=== PATIENT | female | born 1970 | race Caucasian/White ===

== ENCOUNTER 2017-08-07 10:37 | Observation (INO) ==
[2017-08-07] MEDS ORDERED: Ipratropium/Albuterol Neb 3 ML IH ONE (10:49)
--- NOTE | 2017-08-07 11:17 | Emergency Department Note ---
Disposition Clinical Impression: Community acquired pneumonia Disposition: Admitted As Inpatient Condition: Fair Time of Disposition: 11:31 ([facility]) SOB HPI - General Chief Complaint: ED Shortness of Breath/Dyspnea Stated Complaint: COUGH, SHORT OF BREATH Time Seen by Provider: 08/07/17 10:42 Source: patient Mode of arrival: ambulatory Limitations: no limitations Nursing Notes Reviewed: Yes Vital Signs Reviewed: Yes - History of Present Illness Almost 2 week history of flulike symptoms fever chills cough congestion runny nose sore throat phlegm production increasing dyspnea and a morbid obese female who presents to emergency room with symptoms worsening nausea no vomiting no diarrhea patient unable to get around the house secondary to shortness of breath cough and congestion denies diarrhea melena hematochezia or hematemesis pain swelling edema patient states that she is 450+ pounds Pt Subjective Complaint: shortness of breath, cough Onset (ago): week(s) (2) Severity: moderate Consistency/Duration: constant, gradually worsening Improves with: nothing Worsens with: lying flat, exertion, coughing, inspiration Known history of: COPD Associated symptoms: Reports: fever, cough, wheezing, sputum production. Denies : chest pain, pain with inspiration, orthopnea, lower extremity pain, polyuria, polydipsia, parasthesias, palpitations, hemoptysis, diaphoresis, nausea/vomiting , syncope, abdominal pain, rash, sense of impending doom Treatment prior to arrival: bronchodilator Cough present: Yes Cough Description: Involuntary, Productive, Strong Cough Frequency: Intermittent Sputum production: Yes Sputum Amount: Small Sputum Color: Yellow, Green - Related Data Home Medications Medication Instructions Recorded Confirmed Gabapentin [Neurontin] 300 mg PO TID 03/23/16 06/07/17 Atorvastatin [Lipitor] 10 mg PO HS 06/07/17 06/07/17 Docusate [Colace] 100 mg PO DAILY 06/07/17 06/07/17 Fluticasone Propionate Nasal 1 spray NS DAILY PRN 06/07/17 06/07/17 [Flonase] Loratadine [Allergy Relief] 10 mg PO DAILY 06/07/17 06/07/17 Previous Rx's Medication Instructions Recorded Hydrocodone/Acetaminophen [[place] 1 tab PO TID PRN #6 tab 03/23/16 5-325 Tablet] Allergies Allergy/AdvReac Type Severity Reaction Status Date / Time No Known Allergies Allergy Verified 11/30/16 10:22 All systems ED: reviewed and negative except as stated. Review of Systems: As Per HPI Constitutional: Reports: fever, chills. Denies: weakness Eyes: Denies: eye pain, eye discharge ENT ED: Reports: ear pain, throat pain, congestion Cardiovascular: Denies: chest pain, palpitations Respiratory: Reports: cough, dyspnea, wheezes, sputum production Gastrointestinal: Denies: abdominal pain, nausea, vomiting Genitourinary: Denies: urgency, dysuria Musculoskeletal: Denies: back pain, neck pain Integumentary: Denies: rash, abrasion Neurological: Denies: headache, weakness Psychiatric: Denies: anxiety Endocrine: Denies: fatigue Hematological/Lymphatic: Denies: easy bleeding Allergic/Immunologic: Denies: facial swelling Past Medical History - Past Medical History Attestation: Yes The following information was validated with the patient. Source: patient, old records reviewed, nursing notes reviewed Medical history: Reports: arthritis, hyperlipidemia, hypertension Psychiatric history: Reports: no psych history - Social History Smoking Status: Former smoker Smokeless Tobacco Status: Yes Alcohol use: Reports: occasionally Drug use: Reports: none Physical Exam - General Limitations: physical limitation (wgt) General appearance: alert, in no apparent distress, obese - Head Head exam: atraumatic, normocephalic, normal inspection - Eye Eye exam: Present: normal appearance, PERRL, EOMI - ENT ENT exam: normal exam, normal oropharynx, mucous membranes moist, normal external ear exam, other (Right tympanic membrane beefy red erythematous left opalescent nasal drip) - Neck Neck exam: Present: normal inspection, full ROM, trachea midline - Chest Chest inspection: Present: normal inspection, symmetric chest wall rise - Respiratory Respiratory exam: Present: wheezes, prolonged expiratory phase, other (rhonci) - Cardiovascular Cardiovascular exam: Present: tachycardia - Abdominal Exam Abdominal exam: Present: soft, Non-Tender, normal bowel sounds. Absent: mass, pulsatile mass - Extremities Exam Extremities exam: Present: normal inspection, full ROM, normal capillary refill. Absent: tenderness, pedal edema, joint swelling, calf tenderness - Expanded Lower Extremity Exam Neurovascular/Tendon exam: Present: normal capillary refill, normal fine/light touch Gait: observed and normal - Back Exam Back exam: Present: normal inspection, full ROM. Absent: muscle spasm - Neurological Exam Neurological exam: Present: alert, oriented X3, CN II-XII intact, normal gait - Psychiatric Psychiatric exam: Present: normal affect, normal mood - Skin Skin exam: Present: warm, dry, intact, normal color Course Course Narrative: Seen and examined chest x-ray obtained upon completion a chest x-ray showing a large left sided pneumonia blood work IV antibiotics were started workup for sepsis was also started in the event that she does meet criteria for this in addition with Dr. León has agreed for admission to his services for further evaluation and treatment Vital Signs Temperature 100.1 F H 08/07/17 10:39 Pulse Rate 118 08/07/17 10:39 Respiratory Rate 22 08/07/17 10:39 Blood Pressure 159/103 08/07/17 10:39 O2 Sat by Pulse Oximetry 96 08/07/17 10:39 Temperature 100.1 F H 08/07/17 10:39 Pulse Rate 108 08/07/17 11:47 Respiratory Rate 20 08/07/17 11:47 Blood Pressure 159/86 08/07/17 11:47 O2 Sat by Pulse Oximetry 94 08/07/17 11:47 Oxygen Delivery Oxygen Delivery Room Air Shortness of Breath/Dyspnea - MDM Narrative Medical decision making narrative: bronchitis flu - Differential Diagnosis Likely: pneumonia - Medical Records Medical records reviewed: Yes I reviewed the patient's medical records. - Lab Data Result diagrams: 08/07/17 11:35 08/07/17 11:35 Lab Results 08/07/17 08/07/17 08/07/17 Range/Units 11:35 11:35 11:35 WBC 23.3 H (4.3-11.1) K/mcL RBC 4.96 (3.82-4.97) M/mcL Hgb 12.4 (11.5-15.4) g/dL Hct 41.3 (35.3-44.9) % MCV 83.3 (83.0-100.0) fL MCH 25.0 L (28.0-33.3) pg MCHC 30.0 L (31.6-35.5) g/dL RDW 14.7 H (11.5-14.5) % Plt Count 207 (140-400) K/mcL MPV 10.4 (9.4-12.4) fL Seg Neutrophils % 84.0 % Band Neutrophils % 4.0 (0-4) % Lymphocytes % 6.0 % Monocytes % 6.0 % Neutrophils # 20.5 H (1.6-8.9) K/mcL Lymphocytes # 1.4 (0.6-4.6) K/mcL Monocytes # 1.4 H (0.0-1.3) K/mcL Platelet Estimate Normal (Normal) Hypochromasia Present A (Not Present) PT 13.9 H (9.4-12.1) Seconds INR 1.3 APTT 31.8 (26.0-36.0) Seconds Sodium 133 L (136-145) mEq/L Potassium 3.9 (3.5-4.5) mEq/L Chloride 99 (98-109) mEq/L Carbon Dioxide 19 (19-29) mEq/L BUN 12 (7-20) mg/dL Creatinine 0.91 (0.57-1.11) mg/dL Est GFR ( Amer) > 60 (> 60) Est GFR (Non-Af Amer) > 60 (> 60) BUN/Creatinine Ratio 13 (6-26) Glucose 140 H (70-99) mg/dL Calculated Osmolality 278 L (280-300) Lactic Acid (0.5-2.2) mmol/L Calcium 9.4 (8.6-10.8) mg/dL Total Bilirubin 1.5 H (0.2-1.2) mg/dL AST 11 (5-34) Units/L ALT 15 (0-55) Units/L Alkaline Phosphatase 78 (38-126) Units/L Serum Total Protein 7.9 (6.0-8.3) g/dL Albumin 3.0 L (3.5-5.0) g/dL Globulin 4.9 H (2.4-3.5) g/dL Albumin/Globulin Ratio 0.6 L (1.1-2.2) 08/07/17 Range/Units 11:35 WBC (4.3-11.1) K/mcL RBC (3.82-4.97) M/mcL Hgb (11.5-15.4) g/dL Hct (35.3-44.9) % MCV (83.0-100.0) fL MCH (28.0-33.3) pg MCHC (31.6-35.5) g/dL RDW (11.5-14.5) % Plt Count (140-400) K/mcL MPV (9.4-12.4) fL Seg Neutrophils % % Band Neutrophils % (0-4) % Lymphocytes % % Monocytes % % Neutrophils # (1.6-8.9) K/mcL Lymphocytes # (0.6-4.6) K/mcL Monocytes # (0.0-1.3) K/mcL Platelet Estimate (Normal) Hypochromasia (Not Present) PT (9.4-12.1) Seconds INR APTT (26.0-36.0) Seconds Sodium (136-145) mEq/L Potassium (3.5-4.5) mEq/L Chloride (98-109) mEq/L Carbon Dioxide (19-29) mEq/L BUN (7-20) mg/dL Creatinine (0.57-1.11) mg/dL Est GFR ( Amer) (> 60) Est GFR (Non-Af Amer) (> 60) BUN/Creatinine Ratio (6-26) Glucose (70-99) mg/dL Calculated Osmolality (280-300) Lactic Acid 3.6 H (0.5-2.2) mmol/L Calcium (8.6-10.8) mg/dL Total Bilirubin (0.2-1.2) mg/dL AST (5-34) Units/L ALT (0-55) Units/L Alkaline Phosphatase (38-126) Units/L Serum Total Protein (6.0-8.3) g/dL Albumin (3.5-5.0) g/dL Globulin (2.4-3.5) g/dL Albumin/Globulin Ratio (1.1-2.2) - Radiology Data Radiology results reviewed: Yes I reviewed the patient's radiology results. Critical Care Time Critical Care Time: Yes Total Critical Care Time: 35 Attestation: Critical care performed: 35 minutes as the result of the patient meeting criteria for sepsis based upon the fact that she is tachycardic elevated white count tachypnea Elevated lactic acid digit patient's morbid obesity though this is requiring more than 6 L of saline to be infused with her morbid obesity the concern is that this could throw her into congestive heart failure she has not been hypotensive and after her first liter fluid bolus patient is pink warm and dry lungs still have heavy crackles or rhonchi noted in up she has got strong peripheral pulses she has brisk refill and heart is sinus vitals showing improvement discussion with Dr. León for fear of causing secondary complications because of her morbid obesity we will hold on giving her the fluids because she her blood pressure has remained stable at this time if she becomes hypotensive or starts to have a decrease in blood pressure at that time we will start infusion of fluids at that time transferred to [facility]. Improved Time is exclusive of separately billable procedures. Time includes: direct patient care, patient reassessment, coordination of patient care, interpretation of data (laboratory data, radiology data, and respiratory data), review of patient's medical records, medical consultation and documentation of patient care. Procedures included in critical care time: Procedures excluded from critical care time:
[2017-08-07] MEDS ORDERED: 0.9 % Sodium Chloride 1,000 ML IVC ONE ×3 (11:19→12:37)
[2017-08-07] MEDS ORDERED: Azithromycin 500 MG in D5% in Water 250 ML IVPB ONE (11:19)
[2017-08-07 11:51] LABS: Hematocrit 41.3 % (35.3-44.9); Hemoglobin 12.4 g/dL (11.5-15.4); Mean Corpuscular Volume 83.3 fL (83.0-100.0); Mean Platelet Volume 10.4 fL (9.4-12.4); Platelet Count 207 K/mcL (140-400); Red Blood Count 4.96 M/mcL (3.82-4.97); Red Cell Distribution Width 14.7 % (11.5-14.5)
[2017-08-07 11:55] LABS: INR 1.3; Prothrombin Time 13.9 Seconds (9.4-12.1)
[2017-08-07 11:57] LABS: Activated Partial Thrombo Time 31.8 Seconds (26.0-36.0)
[2017-08-07 12:08] LABS: Alanine Aminotransferase 15 Units/L (0-55); Albumin/Globulin Ratio 0.6 (1.1-2.2); Alkaline Phosphatase 78 Units/L (38-126); Aspartate Amino Transferase 11 Units/L (5-34); BUN/Creatinine Ratio 13 (6-26); Bilirubin,Total 1.5 mg/dL (0.2-1.2); Blood Urea Nitrogen 12 mg/dL (7-20); Calcium 9.4 mg/dL (8.6-10.8); Carbon Dioxide 19 mEq/L (19-29); Chloride 99 mEq/L (98-109); Globulin 4.9 g/dL (2.4-3.5); Glucose 140 mg/dL (70-99); Osmolality,Calculated 278 (280-300); Potassium 3.9 mEq/L (3.5-4.5); Sodium 133 mEq/L (136-145); Total Protein 7.9 g/dL (6.0-8.3); eGFR For African Americans > 60 (> 60); eGFR For Non-African Americans > 60 (> 60)
[2017-08-07 12:30] LABS: Lymphocytes # 1.4 K/mcL (0.6-4.6); Monocytes # 1.4 K/mcL (0.0-1.3); Neutrophils # 20.5 K/mcL (1.6-8.9); Platelet Estimate Normal (Normal)
[2017-08-07 12:31] LABS: Hypochromasia Present (Not Present)
[2017-08-07] MEDS ORDERED: Fluticasone Propionate Nasal 50 MCG/SPRAY BOTTLE NS PRN ×2 (12:37→14:44)
[2017-08-07] MEDS ORDERED: 0.9 % Sodium Chloride 1,000 ML IVC SCH ×3 (12:37→14:44)
[2017-08-07] MEDS ORDERED: Ondansetron ODT 4 MG TAB.RAPDIS SL PRN ×2 (12:37→14:44)
[2017-08-07] MEDS ORDERED: Acetaminophen 325 MG TABLET PO PRN ×2 (12:37→14:44)
[2017-08-07] MEDS ORDERED: *HR* HYDROcodone/Acet 5/325 mg TABLET PO PRN (12:37)
[2017-08-07] MEDS ORDERED: Ibuprofen 400 MG TABLET PO PRN (12:37)
[2017-08-07] MEDS ORDERED: Naloxone 0.4 MG/ML INJ IVP PRN ×2 (12:37→14:44)
[2017-08-07] MEDS ORDERED: Ipratropium/Albuterol Neb 3 ML IH SCH ×2 (13:00→16:00)
[2017-08-07] MEDS: 0.9 % Sodium Chloride 1,000 ML IVC SCH ×2 (14:54→22:29)
[2017-08-07] MEDS ORDERED: Gabapentin 300 MG CAPSULE PO SCH (15:00)
[2017-08-07] MEDS: Gabapentin 300 MG CAPSULE PO SCH ×2 (15:08→19:59)
[2017-08-07] MEDS: Ibuprofen 400 MG TABLET PO PRN (15:37)
[2017-08-07] MEDS: Ipratropium/Albuterol Neb 3 ML IH SCH ×2 (16:36→22:51)
[2017-08-08] MEDS: Ipratropium/Albuterol Neb 3 ML IH SCH ×2 (04:43→10:56)
[2017-08-08 06:23] LABS: INR 1.4; Prothrombin Time 15.1 Seconds (9.4-12.1)
[2017-08-08 06:26] LABS: Activated Partial Thrombo Time 29.6 Seconds (26.0-36.0)
[2017-08-08] MEDS: Ibuprofen 400 MG TABLET PO PRN ×2 (06:41→20:44)
[2017-08-08] MEDS: *HR* HYDROcodone/Acet 5/325 mg TABLET PO PRN ×2 (06:41→20:27)
[2017-08-08 08:33] LABS: Hematocrit 32.6 % (35.3-44.9); Hemoglobin 10.2 g/dL (11.5-15.4); Mean Corpuscular HGB Conc 31.3 g/dL (31.6-35.5); Mean Corpuscular Hemoglobin 24.8 pg (28.0-33.3); Mean Corpuscular Volume 79.3 fL (83.0-100.0); Mean Platelet Volume 10.6 fL (9.4-12.4); Platelet Count 210 K/mcL (140-400); Red Blood Count 4.11 M/mcL (3.82-4.97); Red Cell Distribution Width 14.6 % (11.5-14.5)
[2017-08-08 08:47] LABS: BUN/Creatinine Ratio 23 (6-26); Blood Urea Nitrogen 17 mg/dL (7-20); Calcium 8.6 mg/dL (8.6-10.8); Carbon Dioxide 25 mEq/L (19-29); Chloride 103 mEq/L (98-109); Glucose 106 mg/dL (70-99); Osmolality,Calculated 286 (280-300); Potassium 3.7 mEq/L (3.5-4.5); Sodium 137 mEq/L (136-145); eGFR For African Americans > 60 (> 60); eGFR For Non-African Americans > 60 (> 60)
[2017-08-08] MEDS ORDERED: Loratadine 10 MG TABLET PO SCH ×2 (09:00)
[2017-08-08 09:02] LABS: Lymphocytes # 0.7 K/mcL (0.6-4.6); Monocytes # 0.7 K/mcL (0.0-1.3); Neutrophils # 15.7 K/mcL (1.6-8.9)
[2017-08-08 09:03] LABS: Platelet Estimate Normal (Normal)
[2017-08-08] MEDS: Gabapentin 300 MG CAPSULE PO SCH ×3 (09:17→20:27)
--- NOTE | 2017-08-08 10:53 | Internal Med History&Physical ---
Date of Encounter: 08/08/17 Time of Encounter: 10:25 Assessment and Plan (1) Community acquired pneumonia Current visit: Yes Status: Acute She was given Rocephin and Zithromax in the emergency room. These will be continued along with lactobacillus. Qualifiers: Laterality: left Lung location: lower lobe of lung Qualified Code(s): J18.1 - Lobar pneumonia, unspecified organism (2) Microcytic anemia Current visit: Yes Status: Acute We will order anemia testing in a.. Internal Medicine - H&P: HPI Chief complaint: cough and dyspnea Admitted From: Emergency Dept Plans for Post Hospital Care: Home History of present illness: Ms. David is a 47 year old female who came to emergency room stating she had cough, chills and congestion for several days. She was evaluated in emergency room and found to have evidence of left mid and lower lung pneumonia. WBC was elevated at 23.3. She was admitted to [facility] floor for ongoing care needs. She denies previous pneumonia. Respiratory history is significant for having smoked from age [age] up to one and half packs per day. She does not use home oxygen. She has a diagnosis of MANN and uses BiPAP. Past Med Surg Social Fam HX - Past Medical History Medical history: arthritis, hyperlipidemia Psychiatric history: no psych history - Social History Smoking Status: Former smoker Smokeless Tobacco Status: Yes Alcohol use: occasionally Drug use: none Internal Medicine - H&P: Meds Gabapentin [Neurontin] 300 mg PO TID 03/23/16 [History] Hydrocodone/Acetaminophen [[place] 5-325 Tablet] 1 tab PO TID PRN #6 tab 03/23/16 [Rx] Atorvastatin [Lipitor] 10 mg PO HS 06/07/17 [History] Docusate [Colace] 100 mg PO DAILY 06/07/17 [History] Fluticasone Propionate Nasal [Flonase] 1 spray NS DAILY PRN 06/07/17 [History] Loratadine [Allergy Relief] 10 mg PO DAILY 06/07/17 [History] 3 Allergy/AdvReac Type Severity Reaction Status Date / Time No Known Allergies Allergy Verified 11/30/16 10:22 All Systems PM: A 10-system review of systems was performed and is negative for pertinent findings except as documented above in the HPI. Review of systems: Gen.: She states her weight is increased approximately 50 pounds in the past year Cardiovascular: She denies ME hypertension heart failure angina DVT or pulmonary embolus Respiratory: As per history of present illness GI: She reports a "gallbladder problems" but has not had cholecystectomy. She has GERD and umbilical hernia. She denies disorders of her liver or exocrine pancreas : She thinks she may have had a kidney stone in the past. She denies other kidney or bladder disorders Neurologic: She claims she had a "stroke" in the but there was no permanent neurologic deficit. She denies seizures. Endocrine: She has hyperlipidemia but denies diabetes or thyroid disease Hematology/oncology: She denies blood disorders cancers or anemia. She has had microcytosis present on most labs in the past 2 years Psychiatric: She denies anxiety depression or other mental health issues Musk skeletal: She has DJD but denies gout or other bone joint or muscle disorders. - Constitutional Vitals: Temp Pulse Resp BP Pulse Ox 98.1 F 83 18 124/71 96 08/08/17 06:33 08/08/17 06:33 08/08/17 06:33 08/08/17 06:33 08/08/17 09:22 Exam: Gen.: She is a well-developed morbidly obese female lying in bed who appears in mild respiratory distress. She is coughing frequently HEENT: Head is atraumatic and normocephalic. Eyes: EOMI. There is no scleral icterus. Mouth: Mucosa is moist. Neck: There is no thyromegaly or adenopathy noted. Heart: Regular without murmurs gallops or ectopics Lungs: No wheezes crackles or egophony are heard Abdomen: She has a large abdomen. She has a umbilical hernia measuring approximately 8-10 cm diameter. The abdomen is nontender to palpation. Extremities: There is no cyanosis edema or clubbing noted. Dorsalis pedis and posttibial pulses are trace palpable bilaterally. She has marked adiposity of her extremities. Neurologic: Mental status: She is talkative and a good historian. Cranial nerves: Smile is symmetric. Forehead wrinkles bilaterally. Tongue protrudes midline. EOMI. Motor: There is no pronator drift. Cerebellar: Finger to nose is intact bilaterally. Skin: Warm and dry Internal Med - H&P Results - Labs CBC & Chem 7: 08/08/17 08:07 08/08/17 08:07 Labs: Short CBC 08/08/17 Range/Units 08:07 WBC 17.1 H (4.3-11.1) K/mcL Hgb 10.2 L D (11.5-15.4) g/dL Hct 32.6 L (35.3-44.9) % Plt Count 210 (140-400) K/mcL Neutrophils # 15.7 H (1.6-8.9) K/mcL BMP 08/08/17 08:07 Sodium 137 Potassium 3.7 Chloride 103 Carbon Dioxide 25 BUN 17 Creatinine 0.75 Glucose 106 H Calcium 8.6
[2017-08-08] MEDS: cefTRIAXone 1,000 MG in Water for inj. (sterile) 20 ML 10 ML IVP SCH (15:14)
[2017-08-08] MEDS: Azithromycin 500 MG in D5% in Water 250 ML IVPB SCH (15:15)
[2017-08-08] MEDS: Albuterol 2.5 MG/3 ML NEBULIZER IH PRN (17:53)
[2017-08-08] MEDS: Lactobacillus 1 EACH CAP.SPRINK PO SCH (20:27)
[2017-08-08] MEDS: Nystatin POWDER 30 GM BOTTLE TP SCH (21:23)
[2017-08-09] MEDS: Ibuprofen 400 MG TABLET PO PRN (02:59)
[2017-08-09] MEDS: *HR* HYDROcodone/Acet 5/325 mg TABLET PO PRN ×2 (02:59→09:49)
[2017-08-09] MEDS: Albuterol 2.5 MG/3 ML NEBULIZER IH PRN ×2 (03:07→09:02)
[2017-08-09 06:29] LABS: Hemoglobin 9.6 g/dL (11.5-15.4); Mean Corpuscular Hemoglobin 24.9 pg (28.0-33.3); Mean Corpuscular Volume 80.5 fL (83.0-100.0); Mean Platelet Volume 10.6 fL (9.4-12.4); Platelet Count 202 K/mcL (140-400); Red Blood Count 3.85 M/mcL (3.82-4.97); Red Cell Distribution Width 14.7 % (11.5-14.5)
[2017-08-09 07:22] VITALS: BP 125/72
[2017-08-09 07:25] LABS: Lymphocytes # 1.9 K/mcL (0.6-4.6); Monocytes # 0.6 K/mcL (0.0-1.3)
[2017-08-09 07:29] LABS: Anisocytosis 1+ (Not Present); Hypochromasia Present (Not Present); Platelet Estimate Normal (Normal); Polychromasia 1+ (Not Present)
[2017-08-09 07:31] LABS: Dohle Bodies Present (Not Present)
[2017-08-09 09:36] LABS: % Iron Saturation 6 % (15-50); Ferritin 156 ng/ml (10-120); Iron 17 mcg/dL (50-170); Transferrin 215 mg/dL (203-362)
[2017-08-09] MEDS: Lactobacillus 1 EACH CAP.SPRINK PO SCH (09:49)
[2017-08-09] MEDS: cefTRIAXone 1,000 MG in Water for inj. (sterile) 20 ML 10 ML IVP SCH (09:49)
[2017-08-09] MEDS: Gabapentin 300 MG CAPSULE PO SCH (09:49)
[2017-08-09] MEDS: Azithromycin 500 MG in D5% in Water 250 ML IVPB SCH (09:50)
[2017-08-09] MEDS: Nystatin POWDER 30 GM BOTTLE TP SCH (09:51)
--- NOTE | 2017-08-09 10:23 | Discharge Summary ---
Date of Encounter: 08/09/17 Time of Encounter: 10:10 - Discharge Diagnosis (1) Community acquired pneumonia Priority: Primary Status: Acute Qualifiers: Laterality: left Lung location: lower lobe of lung Qualified Code(s): J18.1 - Lobar pneumonia, unspecified organism (2) Microcytic anemia Priority: Secondary Status: Acute - Discharge Medications Prescriptions: Cefuroxime PO [Ceftin] 500 mg PO Q12HR #10 tablet Ascorbic Acid [Vitamin C] 500 mg PO DAILY #30 tablet Azithromycin [Zithromax] 250 mg PO DAILY #5 tablet Ferrous Sulfate 325 mg PO DAILY #30 tablet. Lactobacillus [Culturelle] 1 each PO BID #10 [email or web address] Home Medications: Gabapentin [Neurontin] 300 mg PO TID 03/23/16 [History] Hydrocodone/Acetaminophen [[place] 5-325 Tablet] 1 tab PO TID PRN #6 tab 03/23/16 [Rx] Atorvastatin [Lipitor] 10 mg PO HS 06/07/17 [History] Docusate [Colace] 100 mg PO DAILY 06/07/17 [History] Fluticasone Propionate Nasal [Flonase] 1 spray NS DAILY PRN 06/07/17 [History] Loratadine [Allergy Relief] 10 mg PO DAILY 06/07/17 [History] Ascorbic Acid [Vitamin C] 500 mg PO DAILY #30 tablet 08/09/17 [Rx] Azithromycin [Zithromax] 250 mg PO DAILY #5 tablet 08/09/17 [Rx] Cefuroxime PO [Ceftin] 500 mg PO Q12HR #10 tablet 08/09/17 [Rx] Ferrous Sulfate 325 mg PO DAILY #30 tablet. 08/09/17 [Rx] Lactobacillus [Culturelle] 1 each PO BID #10 cap.[email or web address] 08/09/17 [Rx] Allergies/Adverse Reactions: 3 Allergy/AdvReac Type Severity Reaction Status Date / Time No Known Allergies Allergy Verified 11/30/16 10:22 Date of admission: 08/07/17 12:33 Primary care physician: Amalia Yousif CNP - Patient Status Disposition: Home, Self-Care Condition: Fair Overall status at discharge: patient is progressing back to baseline - Discharge Instructions Follow Up With: Amalia Yousif CNP [Primary Care Provider] - - Diet and Activity Activity: resume usual activities as tolerated Diet: advance to your usual diet Hospital course: Ms. David is a 47 year old female who came to emergency room stating she had cough, chills and congestion for several days. She was evaluated in emergency room and found to have evidence of left mid and lower lung pneumonia. WBC was elevated at 23.3. She was admitted to [facility] floor for ongoing care needs. Initial orders were written by the emergency room physician. I saw her on August 08 and performed the history and physical. She was started on Rocephin and Zithromax with lactobacillus. She had significant clinical improvement with WBC normalizing to 9.4 by day of discharge with resolution of the left shift. She remained afebrile. She will be discharged home with antibiotic and probiotic for 5 additional days. Anemia testing showed iron 17, transferrin saturation 6%, transferrin 215, and ferritin 156. B12 and folate are pending at time of discharge. She will be given ferrous sulfate with vitamin C. Her PCP can follow up on the pending B12 and folate levels. She will be discharged home and follow with her PCP Amalia Yousif CNP within 1 week. - Time Spent with Patient Total time spent providing and/or coordinating discharge services: - Constitutional Vitals: Temp Pulse Resp BP Pulse Ox 98.4 F 72 15 125/72 92 08/09/17 07:00 08/09/17 07:00 08/09/17 09:05 08/09/17 07:00 08/09/17 09:05
[2017-08-09 10:54] LABS: Folate 8.8 ng/mL (3.0-16.0)
== END 2017-08-09 16:20 | disposition home or self-care (01) ==
LOC: EMEROOPIK 10:37 → INPPIK 10:37
PROVIDERS: ADMIT Emergency Medicine; ATTEND Internal Medicine